=== PATIENT | female | born 1980 | race Hispanic/Latino ===

== ENCOUNTER 2024-08-14 22:04 | Emergency (ER) | payer OTHER ==
[~2024-08-14] VITALS: Ht 162.6 cm; Wt 68.0 kg
[2024-08-14 22:49] VITALS: PULSE 91; RESP 15; TEMP 97.3
[2024-08-14] MEDS ORDERED: MEDROL4 M2 PO (23:22)
[2024-08-14] MEDS ORDERED: ORPHENADRINE C100 MG PO (23:22)
[2024-08-14] MEDS: ORPHENADRINE CITRATE 30 MG/ML VIAL IM ONE (23:28)
[2024-08-14] MEDS: KETOROLAC TROMETHAMINE 60 MG/2 ML VIAL IM ONE (23:29)
[2024-08-15 00:50] VITALS: BP 124/57; PULSE 78; RESP 18; TEMP 98.2; O2SAT 100
== END 2024-08-15 00:20 | disposition home or self-care (01) ==
LOC: ER 22:08
DX: M54.42 Lumbago with sciatica, left side (principal)
CPT/HCPCS: 99283; J1885; J2360